=== PATIENT | female | born 1970 ===

== ENCOUNTER 2018-06-07 18:34 | Emergency (ER) | payer OTHER ==
[2018-06-07 18:57] VITALS: TEMP 98.2; O2SAT 99
--- NOTE | 2018-06-07 21:32 | ED PDOC ---
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 Since then she has had pain and swelling. Pt did not take any medications for pain. Denies head injury, LOC, numbness or tingling, decrease motor or sensation PMD: Dr. Becerra LMP: 4 months ago Past Medical History Reviewed: Historical Data, Nursing Documentation, Vital Signs Vital Signs: Last Vital Signs Temp 98.2 F 06/07/18 18:54 Pulse 77 06/07/18 18:54 Resp 18 06/07/18 18:54 BP 158/110 H 06/07/18 18:54 Pulse Ox 99 06/07/18 18:54 Primary Care Provider: Doctor,Conversion - Medical History PMH: No Chronic Diseases - Family History Family History: States: No Known Family Hx - Home Medications Home Medications: Ambulatory Orders Medication Instructions Recorded Ibuprofen [Motrin Tab] 600 mg PO Q6 PRN #20 tab 06/07/18 - Allergies Allergies/Adverse Reactions: Allergies Allergy/AdvReac Type Severity Reaction Status Date / Time No Known Allergies Allergy Verified 06/07/18 18:54 Review of Systems Constitutional: Negative for: Fever Musculoskeletal: Positive for: Arm Pain, Hand Pain. Negative for: Neck Pain, Back Pain Neurological: Negative for: Weakness, Numbness, Headache Physical Exam - Reviewed Nursing Documentation Reviewed: Yes Vital Signs Reviewed: Yes - Physical Exam Comments: GENERAL APPEARANCE: Patient is awake, alert, oriented x 3, in no acute distress. SKIN: Warm, dry; (-) cyanosis. CHEST AND RESPIRATORY: (-) chest wall tenderness. Lungs: (-) rales, (-) rhonchi, (-) wheezes; breath sounds equal bilaterally. HEART AND CARDIOVASCULAR: (-) irregularity; (-) murmur, (-) gallop. EXTREMITIES: pulses +2, capillary refill <2sec, NVI x4; RUE: (+) tenderness along ulna aspect of distal forearm to wrist and along 5th metacarpal with mild swelling, decrease ROM due to pain, (-) deformity (-) ecchymosi (-) distal neurovascular deficit Elbow: (-) tenderness. (+)FROM NEURO AND PSYCH: Mental status as above. - ECG O2 Sat by Pulse Oximetry: 99 Medical Decision Making Medical Decision Makin:10 sprain vs fracture -- XR hand, wrist, forearm -- Ibuprofen PO -- re eval -- pt denies h/o HTN and currently asymptomatic, likely due to pain 21:00 xrs reviewed by me of hand, wrist, forearm show no acute fractures or dislocations informed pt she will be contacted if any discrepancies with radiology read BP has gone down, pain improved, adriana wrap applied by ED RN Discussed results, diagnosis, treatment, return precautions and f/u with pt who is understanding, in agreement and stable for dc Disposition - Clinical Impression Clinical Impression: Right wrist sprain, Fall from slip, trip, or stumble - Patient ED Disposition Is Patient to be Admitted: No Counseled Patient/Family Regarding: Studies Performed, Diagnosis, Need For Followup, Rx Given - Disposition Referrals: Rhiannon Becerra APN [Advanced Practice Nurse] - Chico Harley MD [Medical Doctor] - Griffin Brown III, MD [Staff Provider] - Disposition: Routine/Home Disposition Time: 21:32 Condition: STABLE Additional Instructions: Marquis por dejarnos cuidar de ti hoy. Muse la medicacin segn lo prescrito. Descansa, hielo y eleva tu brazo. Use rossy envoltura adriana para la compresin. Chip un seguimiento con el mdico therese se indica. La atencin mdica de emergencia que recibi hoy se dirigi a courtney sntomas agudos. Si le recetaron algn medicamento, llnelo y tmelo segn las indicaciones. Los sntomas pueden tardar varios pacheco en resolverse. Regrese al Departamento de Emergencias si courtney sntomas empeoran, no mejoran o si tiene otros problemas. Comunquese con orellana mdico dentro de 2 pacheco para rossy nueva evaluacin y chip un seguimiento o llame a lyle de los mdicos / clnicas a los que lyon sido referido y que figuran en el formulario de Informacin de visita al paciente que se incluye en orellana paquete de gwendolyn. Lleve todos los documentos que recibi al momento del gwendolyn junto con los medicamentos que est tomando para orellana visita de seguimiento. Nuestro tratamiento no puede reemplazar la atencin mdica continua por parte de un proveedor de atencin primaria (PCP) fuera del departamento de emergencias. Prescriptions: Ibuprofen [Motrin Tab] 600 mg PO Q6 PRN #20 tab PRN Reason: Pain, Moderate (4-7) Instructions: Wrist Sprain (DC), Common Wrist Injuries Forms: [facility] (Angolan) Print Language: MAURITANIAN - POA Present On Arrival: Falls Or Trauma
[2018-06-07 21:52] VITALS: BP 144/88; PULSE 84; RESP 16
--- NOTE | 2018-06-08 08:19 | RAD ---
Date of service: 06/07/2018 PROCEDURE: Right small finger radiographs. HISTORY: fall, pain COMPARISON: None. TECHNIQUE: AP radiograph of the right hand, as well as spot oblique and lateral images of small finger were obtained. 3 views obtained. FINDINGS: RIGHT SMALL FINGER: Normal right small finger, without fracture or focal lesion. Remainder of the right hand (as seen on the AP view) grossly unremarkable. JOINTS: Mild joint space narrowing and mild spurring-all distal interphalangeal joints level affected. No erosions seen. SOFT TISSUES: Mild soft tissue swelling diffuse over digits. Chronicity unknown. OTHER FINDINGS: None. IMPRESSION: Mild degenerative changes mostly accentuated at each distal interphalangeal joint lesser involvement proximal interphalangeal joint. Osteoarthrosis is favored. No erosions seen.
--- NOTE | 2018-06-08 08:21 | RAD ---
Date of service: 06/07/2018 PROCEDURE: Right Wrist Radiographs. HISTORY: fall, pain COMPARISON: None. TECHNIQUE: 4 views obtained. FINDINGS: BONES: Normal. No fracture. JOINTS: Probable mild radiocarpal joint space narrowing-angulation images limited No dislocation. SOFT TISSUES: 1 mm ossific density borders ulnar styloid base chronicity unknown. Clinical significance-if any-also unknown. OTHER FINDINGS: None. IMPRESSION: No definitive acute cortical fracture appreciated. Other findings as above.
--- NOTE | 2018-06-08 08:33 | RAD ---
PROCEDURE: Radiographs of the Right Forearm HISTORY: fall, pain COMPARISON: None available. TECHNIQUE: Frontal and lateral views obtained. 2 views obtained. FINDINGS: BONES: No fracture or destructive lesion appreciated. JOINT SPACES: Radiocarpal mild joint space narrowing-degenerative changes here inferred OTHER FINDINGS: None. IMPRESSION: No fracture appreciated. Degenerative changes as above.
== END 2018-06-07 22:41 | disposition home or self-care (01) ==
LOC: H.ER 18:34
DX: S63.501A Unspecified sprain of right wrist, initial encounter (principal); W01.0XXA Fall on same level from slipping, tripping and stumbling without subsequent striking against object, initial encounter